=== PATIENT | female | born 1985 | race Two or more races ===

== ENCOUNTER 2022-05-26 01:31 | Emergency (ER) | payer OTHER ==
[~2022-05-26] VITALS: Ht 157.5 cm; Wt 72.5 kg
[2022-05-26 03:20] LABS: Basophils # (auto) 0.1 10 ^3/uL (0-0.2); Basophils % (auto) 0.6 % (0.0-2.0); Eosinophils # (auto) 0.3 10 ^3/uL (0-0.8); Eosinophils % (auto) 3.7 % (0.0-7.0); Hematocrit 40.7 % (36.0-46.0); Hemoglobin 14.1 g/dL (12.2-16.2); Lymphocytes # (auto) 1.7 10 ^3/uL (0.4-5.4); Mean Corpuscular Hemoglobin 31.7 pg (28.0-32.0); Mean Corpuscular Hgb Conc. 34.6 g/dL (32.0-36.0); Mean Corpuscular Volume 91.5 fL (80.0-100.0); Monocytes # (auto) 0.5 10 ^3/uL (0-1.3); Monocytes % (auto) 5.9 % (0.0-12.0); Neutrophils # (auto) 6.7 10 ^3/uL (1.6-8.6); Neutrophils % (auto) 71.8 % (37.0-80.0); Red Blood Cells 4.45 10^6/uL (4.0-5.20); Red Cell Distribution Width 12.1 % (11.8-14.3); White Blood Cell 9.3 10^3/uL (4.4-10.8)
[2022-05-26 03:46] LABS: Albumin 3.8 g/dL (3.4-5.0); BUN/Creatinine Ratio 14.7; Calcium 8.9 mg/dL (8.5-10.1); Potassium 4.2 mmol/L (3.5-5.1)
[2022-05-26 03:55] LABS: Bilirubin, Total 0.4 mg/dL (0.2-1.0); Total Protein 7.2 g/dL (6.4-8.2)
[2022-05-26] MEDS ORDERED: IOHEXOL 350 MG/ML 100ML IJ ONE (03:56)
[2022-05-26 04:06] LABS: Urine Bacteria FEW /hpf (None Seen); Urine Blood Negative /uL (Negative); Urine Mucus FEW (None Seen); Urine Specific Gravity 1.029 (1.001-1.035); Urine WBC 3 /hpf (0 - 5)
[2022-05-26] MEDS ORDERED: HYDR1TAB97 PO (05:55)
[2022-05-26] MEDS ORDERED: TAM04C PO (05:55)
[2022-05-26] MEDS ORDERED: KETOROLAC TROMETH 30 MG/ML 1ML VIAL IV ONE (06:00)
[2022-05-26] MEDS ORDERED: HYDROcodone-ACET 5/325MG TAB PO ONE (06:00)
[2022-05-26 07:51] VITALS: BP 126/79
== END 2022-05-26 07:57 | disposition home or self-care (01) ==
LOC: ER 01:31
DX: N23 Unspecified renal colic (principal); N20.9 Urinary calculus, unspecified; Z90.49 Acquired absence of other specified parts of digestive tract
CPT/HCPCS: 36415; 74177; 80053; 81001; 81025; 83690; 85025; 99285; Q9967

== ENCOUNTER 2024-09-20 09:15 | Inpatient (IN) | payer OTHER ==
[~2024-09-20] VITALS: Ht 157.5 cm; Wt 85.0 kg
[~2024-09-20 09:15] MED LIST: HYDR1TAB97 PO; TAMS-35 PO
--- NOTE | 2024-09-20 09:22 | ECG ---
[facility] Test Date: 2024-09-20 Test Time: 09:20:56 Pat Name: CRAIG HUERTA Department: ER Room: [address] [place] [address] Gender: F Co Chairman: AZUL : 1985 Requested By: ANGELA GRECO Order Number: [id number] Reading MD: Ronnie Cole Measurements Intervals [place] Rate: 88 P: 45 CT: 122 QRS: 44 QRSD: 82 T: 16 QT: 354 QTc: 429 Interpretive Statements Sinus rhythm Borderline T abnormalities, anterior leads Electronically Signed On 09-21-2024 22:15:22 PST by Ronnie Cole Please click the below link to view image of tracing.
--- NOTE | 2024-09-20 09:35 | DVH ---
CHEST RADIOGRAPH Indication: chest pain Technique: Single frontal view of the chest was obtained COMPARISON: None FINDINGS: Lines and Tubes: None Lungs: Clear Pleura: No effusion. No pneumothorax. Cardiomediastinal contours: Unremarkable Bones: Unremarkable IMPRESSION: No acute disease.
[2024-09-20 10:17] LABS: Basophils # (auto) 0 10 ^3/uL (0-0.2); Basophils % (auto) 0.7 % (0.0-2.0); Eosinophils # (auto) 0.2 10 ^3/uL (0-0.8); Eosinophils % (auto) 3.3 % (0.0-7.0); Hematocrit 45.3 % (36.0-46.0); Hemoglobin 15.5 g/dL (12.2-16.2); Lymphocytes # (auto) 1.6 10 ^3/uL (0.4-5.4); Lymphocytes % (auto) 30.1 % (10.0-50.0); Mean Corpuscular Hemoglobin 31.3 pg (28.0-32.0); Mean Corpuscular Hgb Conc. 34.2 g/dL (32.0-36.0); Mean Corpuscular Volume 91.4 fL (80.0-100.0); Monocytes # (auto) 0.4 10 ^3/uL (0-1.3); Monocytes % (auto) 7.2 % (0.0-12.0); Neutrophils # (auto) 3.2 10 ^3/uL (1.6-8.6); Neutrophils % (auto) 58.7 % (37.0-80.0); Nucleated Red Blood Cells % 0.1 %; Platelet Count (auto) 204 10^3/uL (140-450); Red Blood Cells 4.96 10^6/uL (4.0-5.20); Red Cell Distribution Width 12.7 % (11.8-14.3); White Blood Cell 5.4 10^3/uL (4.4-10.8)
--- NOTE | 2024-09-20 10:17 | ED.PDOC ---
HPI Comments 39-year-old female with no reported PMHx presents with a chief complaint of chest pain x 1 day. Patient states that her pain is localized to her sternal region, radiates down her left arm, describes as sharp, and rates the pain a 9/10. Patient mentions that the timing of the pain is consistent and not intermittent in timing. Patient mentions that the pain began at rest. No other symptoms or modifying factors present at this time. Chief Complaint: Chest Pain Time Seen by MD: 09:54 Reviewed Notes: Medications, Allergies Allergies: Coded Allergies: NO KNOWN ALLERGIES (Unverified , 05/26/22) Home Meds Active Scripts Hydrocodone-Acetaminophen (Hydrocodone/Acetaminophen 5-325 mg) 1 Tab Tab, 1 TAB PO [id number] PRN for 2 Days, #4 TAB Prov:NOEL CHOWDARY MD 05/26/22 Tamsulosin Hcl (Flomax) 0.4 Mg Cap, 0.4 MG PO DAILY for 7 Days, #7 CAP Prov:NOEL CHOWDARY MD 05/26/22 Information Source: Patient Mode of Arrival: Ambulatory Severity: Moderate Timing: Days Duration: Since onset Prehospital treatment: None Location: Substernal Radiation: Arm (L) Quality: Sharp Onset: At Rest Cardiac Risk Factors: None PE Risk Factors: None History of: None Past Medical History PAST MEDICAL HISTORY: UTI'S 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, 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 Family History Family History: Reviewed,noncontributory to illness Social History Smoker: Non-Smoker Alcohol: Denies ETOH Use Drugs: Denies Drug Use Lives In: Home Constitutional: denies: chills, diaphoresis, fatigue, fever, malaise, sweats, weakness, others EENTM: denies: blurred vision, double vision, ear bleeding, ear discharge, ear drainage, ear pain, ear ringing, eye pain, eye redness, hearing loss, mouth pain, mouth swelling, nasal discharge, nose bleeding, nose congestion, nose pain, photophobia, tearing, throat pain, throat swelling, voice changes, others Respiratory: denies: cough, hemoptysis, orthopnea, SOB at rest, shortness of breath, SOB with excertion, stridor, wheezing, others Cardiovascular: reports: chest pain; denies: dizzy spells, diaphoresis, Dyspnea on exertion, edema, irregular heart beat, left arm pain, lightheadedness, palpitations, PND, syncope, others Gastrointestinal: denies: abdomen distended, abdominal pain, blood streaked bowels, constipated, diarrhea, dysphagia, difficulty swallowing, hematemesis, melena, nausea, poor appetite, poor fluid intake, rectal bleeding, rectal pain, vomiting, others Genitourinary: denies: abnormal vagina bleeding, burning, dyspareunia, dysuria, flank pain, frequency, hematuria, incontinence, pain, , vagina discharge, urgency, others Neurological: denies: dizziness, fainting, headache, left sided numbness, left sided weakness, numbness, paresthesia, pre-existing deficit, right sided numbness, right sided weakness, seizure, speech problems, tingling, tremors, weakness, others Musculoskeletal: denies: back pain, gout, joint pain, joint swelling, muscle pain, muscle stiffness, neck pain, others Integumetry: denies: bruises, change in color, change in hair/nails, dryness, laceration, lesions, lumps, rash, wounds, others Allergic/Immunocompromised: denies: Difficulty Healing, Frequent Infections, Hives, Itching, others Hematologic/Lymphatic: denies: anemia, blood clots, easy bleeding, easy bruising, swollen glands, others Endocrine: denies: excessive hunger, excessive sweating, excessive thirst, excessive urination, flushing, intolerance to cold, intolerance to heat, unexplained weight gain, unexplained weight loss, others Psychiatric: denies: anxiety, bipolar disorder, depression, hopeless, panic disorder, schizophrenia, sleepless, suicidal, others All Other Systems: Reviewed and Negative Physical Exam General Appearance: Moderate Distress, Normal HEENT: Normal ENT Inspection, Pharynx Normal, TMs Normal Neck: Full Range of Motion, Non-Tender, Normal, Normal Inspection Respiratory: Chest Non-Tender, Lungs Clear, No Accessory Muscle Use, No Respiratory Distress, Normal Breath Sounds Cardiovascular: No Edema, No JVD, No Murmur, No Gallop, Normal Peripheral Pulses, Regular Rate/Rhythm Breast Exam: Deferred Gastrointestinal: No Organomegaly, Non Tender, No Pulsatile Mass, Normal Bowel Sounds, Soft Genitalia: Deferred Pelvic: Deferred Rectal: Deferred Extremities: No calf tenderness, Normal capillary refill, Normal inspection, Normal range of motion, Non-tender, No pedal edema Musculoskeletal : Apperance: Normal Neurologic: Alert, hr leader II-XII nml as Tested, No Motor Deficits, Normal Affect, Normal Mood, No Sensory Deficits Cerebellar Function: Normal Reflexes: Normal Skin: Dry, Normal Color, Warm Peripheral Pulses: 3+ Radial (R), 3+ Radial (L) Lymphatic: No Adenopathy Was a procedure done? Was a procedure done?: No CP Differential Dx Differential Diagnosis: A-fib, A-Flutter, Angina, Anxiety / Panic Attack, Atrial Dysrhythmia, Electrolyte Disorder X-Ray, Labs, Meds, VS Vital Signs Date Time Temp Pulse Resp B/P (MAP) Pulse Ox O2 Delivery O2 Flow Rate FiO2 09/20/24 09:24 98.0 89 20 141/85 (103) 96 09/20/24 09:20 88 Lab Test 09/20/24 10:25 09/20/24 09:34 Range/Units Troponin I High Sensitivity < 3 L < 3 L </=34 ng/L White Blood Count 5.4 4.4-10.8 10^3/uL Red Blood Count 4.96 4.0-5.20 10^6/uL Hemoglobin 15.5 12.2-16.2 g/dL Hematocrit 45.3 36.0-46.0 % Mean Corpuscular Volume 91.4 80.0-100.0 fL Mean Corpuscular Hemoglobin 31.3 28.0-32.0 pg Mean Corpuscular Hemoglobin Concent 34.2 32.0-36.0 g/dL Red Cell Distribution Width 12.7 11.8-14.3 % Platelet Count 204 140-450 10^3/uL Mean Platelet Volume 8.1 6.9-10.8 fL Neutrophils (%) (Auto) 58.7 37.0-80.0 % Lymphocytes (%) (Auto) 30.1 10.0-50.0 % Monocytes (%) (Auto) 7.2 0.0-12.0 % Eosinophils (%) (Auto) 3.3 0.0-7.0 % Basophils (%) (Auto) 0.7 0.0-2.0 % Neutrophils # (Auto) 3.2 1.6-8.6 10 ^3/uL Lymphocytes # (Auto) 1.6 0.4-5.4 10 ^3/uL Monocytes # (Auto) 0.4 0-1.3 10 ^3/uL Eosinophils # (Auto) 0.2 0-0.8 10 ^3/uL Basophils # (Auto) 0 0-0.2 10 ^3/uL Nucleated Red Blood Cells 0.1 % D-Dimer, Quantitative 0.20 0.0-0.49 mg/L FEU Sodium Level 142 136-145 mmol/L Potassium Level 4.3 3.5-5.1 mmol/L Chloride Level 107 98-107 mmol/L Carbon Dioxide Level 26 20-31 mmol/L Anion Gap 9 5-15 Blood Urea Nitrogen 12 9-23 mg/dL Creatinine 0.93 0.550-1.02 mg/dL Glomerular Filtration Rate Calc 81 >90 mL/min BUN/Creatinine Ratio 12.9 10.0-20.0 Serum Glucose 123 H 74-106 mg/dL Calcium Level 10.4 8.7-10.4 mg/dL Patient alert. Complaining of chest pain. Continues to have chest pain. Vitals stable. D-dimer within normal limits. EKG reviewed does not show any acute changes. Possible mitral valve disease. Cardiac marker within normal limits. Echocardiogram. Explained to the patient. Continue cardiac monitoring. Time of 1ST Reevaluation: 10:24 Reevaluation 1ST: Unchanged Patient Education/Counseling: Diagnosis, Treatment, Prognosis Family Education/Counseling: Diagnosis, Treatment, Prognosis Departure 1 Departure Time of Disposition: 11:57 Impression: Primary Impression: Chest pain of unknown etiology Additional Impression: Mitral valve disease Disposition: ADMITTED INPATIENT Admit to: Med Surg Condition: Guarded Critical Care Note Critical Care Time?: No Stability Stability form required: No Heart Score Heart Score: Heart Score Response (Comments) Value History Slightly Suspicious 0 EKG Normal 0 Age <45 0 Risk Factors No known risk factors 0 Troponin Normal limit 0 Total 0 I personally scribed for ANGELA GRECO MD ([email or web address]) on 09/20/24 at 10:17. Electronically submitted by Carmelo Keller ([email or web address]). ANGELA GRECO MD Sep 20, 2024 10:17
[2024-09-20 10:24] LABS: Potassium 4.3 mmol/L (3.5-5.1); Sodium 142 mmol/L (136-145)
[2024-09-20 10:25] LABS: Anion Gap 9 (5-15); Carbon Dioxide 26 mmol/L (20-31)
[2024-09-20 10:31] LABS: BUN/Creatinine Ratio 12.9 (10.0-20.0); Blood Urea Nitrogen 12 mg/dL (9-23)
[2024-09-20 10:39] LABS: Calcium 10.4 mg/dL (8.7-10.4); Chloride 107 mmol/L (98-107); Glucose 123 mg/dL (74-106)
[2024-09-20] MEDS ORDERED: DOCUSATE SOD 100 MG CAP PO PRN (14:00)
[2024-09-20] MEDS ORDERED: NITROGLYCERIN 0.4 MG SL TAB SL PRN (14:00)
[2024-09-20] MEDS ORDERED: HYDROcodone-ACET 5/325MG TAB PO PRN (14:00)
[2024-09-20] MEDS ORDERED: MORPHINE SULFATE INJ 2 MG/ml SYRG IV PRN (14:00)
[2024-09-20] MEDS: SODIUM CHLOR 0.9% PF (SALINE LOCK) 10ML VIAL/SYR IV SCH (14:00)
--- NOTE | 2024-09-20 14:17 | DVHHP2 ---
History of Present Illness Reason for Visit: Chest pain History of Present Illness Thalia Nelson is a 39-year-old female with no significant past medical history who comes in with complaints of chest pain. Patient states that the chest pain began yesterday while getting ready for work. She thought that maybe it was indigestion. The pain continued all day yesterday about every 3-5 minutes as a stabbing, sharp pain in the left side of her chest that radiated down her left arm. This morning when she woke up the pain continued, and she she noticed her left arm was now feeling numb and tingling so she came to the ER. Past 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, (x 2), Other, Tonsillectomy Smoke: No ALCOHOL: none Drugs: None Lives: with Family Review of Systems Constitutional: No: Fever, Chills, Sweats, Weakness, Malaise, Other Eyes: No: Pain, Vision change, Conjunctivae inflammation, Eyelid inflammation, Other, Redness ENT: No: Ear pain, Ear discharge, Nose pain, Nose discharge, Nose congestion, Mouth pain, Mouth swelling, Throat pain, Throat swelling, Other Respiratory: No: Cough, Dry, Shortness of breath, SOB with excertion, Wheezing, Hemoptysis, Pleuritic Pain, Sputum, Wheezing, Other Cardiovascular: Chest Pain; No: Palpitations, Orthopnea, Paroxysmal Noc. Dyspnea, Edema, Lt Headedness, Other Gastrointestinal: No: Nausea, Vomiting, Abdominal Pain, Diarrhea, Constipation, Melena, Hematochezia, Other Genitourinary: No Dysuria, No Frequency, No Incontinence, No Hematuria, No Retention, No Other Musculoskeletal: No: other, neck pain, shoulder pain, arm pain, back pain, hand pain, leg pain, foot pain Skin: No: Rash, Lesions, Jaundice, Bruising, Other Neurological: No: Weakness, Numbness, Incoordination, Change in speech, Confusion, Seizures, Other Allergies: Coded Allergies: NO KNOWN ALLERGIES (Unverified , 05/26/22) Exam Vital Signs Vital Signs Date Time Temp Pulse Resp B/P (MAP) Pulse Ox O2 Delivery O2 Flow Rate FiO2 09/20/24 09:24 98.0 89 20 141/85 (103) 96 General Appearance: Alert, Oriented X3, Cooperative, mild distress HEENT: Atraumatic, PERRLA Respiratory: Clear to auscultation, Normal air movement Cardiovascular: Regular rate, Normal S1, Normal S2, No murmurs, Other (C/O chest pain) Abdominal: Normal bowel sounds, Soft, No tenderness, No hepatospenomegaly Extremities: No clubbing, No cyanosis, No edema, Normal pulses Skin: No rashes, No breakdown, No significant lesion Neuro: Normal gait, Normal speech, Strength at 5/5 X4 ext Psych/Mental Status: Mental status NL, Mood NL Labs/Xrays Labs Test 09/20/24 12:24 09/20/24 09:34 Range/Units Troponin I High Sensitivity < 3 L </=34 ng/L White Blood Count 5.4 4.4-10.8 10^3/uL Red Blood Count 4.96 4.0-5.20 10^6/uL Hemoglobin 15.5 12.2-16.2 g/dL Hematocrit 45.3 36.0-46.0 % Mean Corpuscular Volume 91.4 80.0-100.0 fL Mean Corpuscular Hemoglobin 31.3 28.0-32.0 pg Mean Corpuscular Hemoglobin Concent 34.2 32.0-36.0 g/dL Red Cell Distribution Width 12.7 11.8-14.3 % Platelet Count 204 140-450 10^3/uL Mean Platelet Volume 8.1 6.9-10.8 fL Neutrophils (%) (Auto) 58.7 37.0-80.0 % Lymphocytes (%) (Auto) 30.1 10.0-50.0 % Monocytes (%) (Auto) 7.2 0.0-12.0 % Eosinophils (%) (Auto) 3.3 0.0-7.0 % Basophils (%) (Auto) 0.7 0.0-2.0 % Neutrophils # (Auto) 3.2 1.6-8.6 10 ^3/uL Lymphocytes # (Auto) 1.6 0.4-5.4 10 ^3/uL Monocytes # (Auto) 0.4 0-1.3 10 ^3/uL Eosinophils # (Auto) 0.2 0-0.8 10 ^3/uL Basophils # (Auto) 0 0-0.2 10 ^3/uL Nucleated Red Blood Cells 0.1 % D-Dimer, Quantitative 0.20 0.0-0.49 mg/L FEU Sodium Level 142 136-145 mmol/L Potassium Level 4.3 3.5-5.1 mmol/L Chloride Level 107 98-107 mmol/L Carbon Dioxide Level 26 20-31 mmol/L Anion Gap 9 5-15 Blood Urea Nitrogen 12 9-23 mg/dL Creatinine 0.93 0.550-1.02 mg/dL Glomerular Filtration Rate Calc 81 >90 mL/min BUN/Creatinine Ratio 12.9 10.0-20.0 Serum Glucose 123 H 74-106 mg/dL Calcium Level 10.4 8.7-10.4 mg/dL CHEST RADIOGRAPH FINDINGS: Lines and Tubes: None Lungs: Clear Pleura: No effusion. No pneumothorax. Cardiomediastinal contours: Unremarkable Bones: Unremarkable IMPRESSION: No acute disease. 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 Procedure Category Date Status Time Admit ADMIT 09/20/24 Verified 14:00 Code Status CODE 09/20/24 Verified 14:00 2 Gm Sodium Diet DIET 09/20/24 Verified Dinner Sodium Chloride Lock PHA 09/20/24 Verified (Saline Lock Ns) 14:00 Hydrocodone-Acet PHA 09/20/24 Verified 5/325mg Tab ([place] 14:00 Ondansetron Hcl PHA 09/20/24 Verified (Zofran) 14:00 Docusate Sodium PHA 09/20/24 Verified Capsule (Colace 14:00 Complete Blood Count LAB 09/21/24 Verified 04:00 Comprehensive LAB 09/21/24 Verified Metabolic Panel 04:00 Condition: Serious [facility] 09/20/24 Verified 14:00 Acetaminophen Tablet PHA 09/20/24 Verified (Tylenol Tablet) 14:00 Nitroglycerin PHA 09/20/24 Verified Sublingual (Ntrostat 14:00 Morphine Sulfate PHA 09/20/24 Verified Injection 14:00 Stat Ekg For Chest [facility] 09/20/24 Verified Pain 14:00 Notify Md Of Changes [facility] 09/20/24 Verified From Base 14:00 Policy Loan Calculator For [facility] 09/20/24 Verified 24 Hours 14:00 Emergency Dysrhythmia [facility] 09/20/24 Verified Protocol 14:00 Rhythm Strips Once [facility] 09/20/24 Verified Every Shift 14:00 Oxygen By Nasal RT 09/20/24 Verified Cannula 14:00 * Cardiology Consult CONS 09/20/24 Verified 14:00 Date of Service: Sep 20, 2024 Billing Provider: OXANA HOUSTON Common Visit Codes: [id number] INP/OBS CARE (MOD) OXANA HOUSTON Sep 20, 2024 14:17
[2024-09-20 15:05] LABS: Cholesterol 194 mg/dL (< 200)
[2024-09-20 15:55] LABS: HDL Cholesterol 60 mg/dL (40-59); LDL Cholesterol 120 mg/dL (< 100); Triglycerides 116 mg/dL (< 150)
--- NOTE | 2024-09-20 16:58 | DVHINCON2 ---
Date Seen: Sep 20, 2024 Referring Physician MEGHAN Gonzalez Reason for Consultation Chest pain History of Present Illness This is a 39-year-old female patient who presents to the emergency room with chief complaint of chest pain. She reports that the chest pain began approximately 5:00 a.m. yesterday upon awakening. She describes it as unprovoked, intermittent, stabbing in nature, substernal with radiation down her left arm. She denies any associated symptoms. She denies any aggravating or alleviating factors. Serial troponin levels have been negative. Initial twelve lead electrocardiogram reveals normal sinus rhythm without any significant ST segment changes. Significant past medical history includes gestational diabetes and obesity. Past Medical History Past medical history reviewed. No other significant than mentioned above. Past Surgical History Cholecystectomy Family History Family history reviewed. Social History Denies the use of tobacco, alcohol or illicit drugs. Allergies: Coded Allergies: NO KNOWN ALLERGIES (Unverified , 05/26/22) Home Meds Discontinued Scripts Hydrocodone-Acetaminophen (Hydrocodone/Acetaminophen 5-325 mg) 1 Tab Tab, 1 TAB PO [id number] PRN for 2 Days, #4 TAB Prov:NOEL CHOWDARY MD 05/26/22 Tamsulosin Hcl (Flomax) 0.4 Mg Cap, 0.4 MG PO DAILY for 7 Days, #7 CAP Prov:NOEL CHOWDARY MD 05/26/22 Home Meds Denies taking any prescribed medications Current Medications Current Medications Medications (Trade) Dose Ordered Sig/Jeancarlos Route PRN Reason Start Time Stop Time Status Last Admin Sodium Chloride (Saline Lock Ns) 10 ml Q8HR IV 09/20/24 14:00 Acetaminophen/ Hydrocodone Bitart ([place] 5/325MG Tab) 1 tab Q4HP PRN PO MODERATE PAIN (4-6 PAIN SCALE) 09/20/24 14:00 Ondansetron HCl (Zofran) 4 mg Q4HP PRN IV NAUSEA / VOMITING 09/20/24 14:00 Docusate Sodium (Colace Capsule) 100 mg BIDPRN PRN PO FOR CONSTIPATION 09/20/24 14:00 Acetaminophen (Tylenol Tablet) 650 mg Q6HP PRN PO PAIN SCALE 1-3 OR TEMP>100.4 09/20/24 14:00 Nitroglycerin (Ntrostat Sublingual) 0.4 mg Q5MINP PRN SL FOR CHEST PAIN 09/20/24 14:00 Morphine Sulfate 2 mg Q30M PRN IV FOR CHEST PAIN 09/20/24 14:00 Review of Systems Constitutional: No symptom reported Ears, Nose, & Throat: No symptom reported Eyes: No symptom reported Neurological: No symptoms reported Pulmonary/Respiratory: No symptoms reported Cardiovascular: Chest pain Gastrointestinal: No symptom reported Genitourinary: No symptom reported Musculoskeletal: No symptom reported Skin: No symptom reported Psychiatric: No symptom reported Endocrine: No symptom reported Hematologic/Lymphatic: No symptom reported Vital Signs Vital Signs Date Time Temp Pulse Resp B/P (MAP) Pulse Ox O2 Delivery O2 Flow Rate FiO2 09/20/24 15:53 98.6 86 18 145/89 (107) 97 98.6 Physical Exam General Appearance: Cooperative. Well-developed. Well-nourished. No acute distress. Pulmonary/Respiratory: Clear, bilateral breaths sounds. Cardiovascular/Chest: Regular rate and rhythm. Peripheral Pulses: 2+ Radial (R). 2+ Radial (L). 2+ Pedal (R). 2+ Pedal (L) Abdominal Exam: Normal bowel sounds. Ankle Exam: Negative ankle edema Lower extremities: Negative lower extremity edema Neuro/Mental Status: A/OX4, coherent. Thoughts/Psych: Normal thought pattern. Appropriate mood and affect. Good judgment and insight. Appearance: No acute distress. Skin Exam: Normal inspection. Normal color. Warm and dry. Labs/Diagnostic Data Labs Test 09/20/24 12:24 09/20/24 09:34 Range/Units Troponin I High Sensitivity < 3 L </=34 ng/L White Blood Count 5.4 4.4-10.8 10^3/uL Red Blood Count 4.96 4.0-5.20 10^6/uL Hemoglobin 15.5 12.2-16.2 g/dL Hematocrit 45.3 36.0-46.0 % Mean Corpuscular Volume 91.4 80.0-100.0 fL Mean Corpuscular Hemoglobin 31.3 28.0-32.0 pg Mean Corpuscular Hemoglobin Concent 34.2 32.0-36.0 g/dL Red Cell Distribution Width 12.7 11.8-14.3 % Platelet Count 204 140-450 10^3/uL Mean Platelet Volume 8.1 6.9-10.8 fL Neutrophils (%) (Auto) 58.7 37.0-80.0 % Lymphocytes (%) (Auto) 30.1 10.0-50.0 % Monocytes (%) (Auto) 7.2 0.0-12.0 % Eosinophils (%) (Auto) 3.3 0.0-7.0 % Basophils (%) (Auto) 0.7 0.0-2.0 % Neutrophils # (Auto) 3.2 1.6-8.6 10 ^3/uL Lymphocytes # (Auto) 1.6 0.4-5.4 10 ^3/uL Monocytes # (Auto) 0.4 0-1.3 10 ^3/uL Eosinophils # (Auto) 0.2 0-0.8 10 ^3/uL Basophils # (Auto) 0 0-0.2 10 ^3/uL Nucleated Red Blood Cells 0.1 % D-Dimer, Quantitative 0.20 0.0-0.49 mg/L FEU Sodium Level 142 136-145 mmol/L Potassium Level 4.3 3.5-5.1 mmol/L Chloride Level 107 98-107 mmol/L Carbon Dioxide Level 26 20-31 mmol/L Anion Gap 9 5-15 Blood Urea Nitrogen 12 9-23 mg/dL Creatinine 0.93 0.550-1.02 mg/dL Glomerular Filtration Rate Calc 81 >90 mL/min BUN/Creatinine Ratio 12.9 10.0-20.0 Serum Glucose 123 H 74-106 mg/dL Hemoglobin A1c 5.0 <5.7 % A1C Calcium Level 10.4 8.7-10.4 mg/dL Magnesium Level 1.9 1.6-2.6 mg/dL Assessment Chest pain, likely noncardiac Rule out structural heart disease Hyperlipidemia, newly diagnosed Obesity Plan/Recommendation We will continue with following plan/recommendations (Dr. Salter): Case reviewed and discussed with . HEART score: 1 point (low score). Given the patient's clinical presentation, negative troponin level, and unremarkable twelve lead electrocardiogram, doubt ACS. We will proceed with obtaining a transthoracic echocardiogram to evaluate cardiac function. In the setting of an unremarkable echocardiogram, there is no further inpatient cardiac workup indicated at this time. Consider outpatient cardiac workup if deemed necessary. Thank you for allowing us to care for this patient. Please call with any questions or concerns. Critical care time spent: 44 minutes This medical document was created using an electronic medical record system with voice recognition software and computerized dictation system. Although this document has been carefully reviewed, there might still be some phonetic and typographical errors. Occasional wrong-word or ``sound-alike substitutions may have occurred due to the inherent limitations of voice recognition software. These areas are purely typographical due to imperfections of the software programs and do not reflect any compromise in the patient's medical care. Please read the chart carefully and recognize, using context, where these substitutions have occurred. Plan discussed with: Patient NYHA Physical activity limitations: NA Date of Service: Sep 20, 2024 Billing Provider: ANURADHA GAGE Cardiology Common Codes: [id number] INP/OBS CARE (High) Cardiology Consultation Codes: [id number] CONSULT <45MIN ANURADHA GAGE Sep 20, 2024 16:58
[2024-09-21 01:25] VITALS: BP 141/88; PULSE 76; RESP 19; TEMP 97.6; O2SAT 96
[2024-09-21] MEDS: ACETAMINOPHEN 325 MG TAB PO PRN (01:28)
[2024-09-21] MEDS: ONDANSETRON HCL 4 MG/2 ML VIAL IV PRN (01:28)
[2024-09-21 05:00] VITALS: BP 133/73; PULSE 82; RESP 18; TEMP 97.4; O2SAT 97
[2024-09-21 05:50] LABS: Basophils # (auto) 0 10 ^3/uL (0-0.2); Basophils % (auto) 0.5 % (0.0-2.0); Eosinophils # (auto) 0.1 10 ^3/uL (0-0.8); Hematocrit 42.3 % (36.0-46.0); Hemoglobin 14.5 g/dL (12.2-16.2); Lymphocytes # (auto) 1.6 10 ^3/uL (0.4-5.4); Lymphocytes % (auto) 22.2 % (10.0-50.0); Mean Corpuscular Hemoglobin 31.3 pg (28.0-32.0); Mean Corpuscular Hgb Conc. 34.2 g/dL (32.0-36.0); Mean Corpuscular Volume 91.6 fL (80.0-100.0); Monocytes # (auto) 0.6 10 ^3/uL (0-1.3); Monocytes % (auto) 7.8 % (0.0-12.0); Neutrophils # (auto) 4.9 10 ^3/uL (1.6-8.6); Neutrophils % (auto) 68.5 % (37.0-80.0); Nucleated Red Blood Cells % 0.4 %; Platelet Count (auto) 191 10^3/uL (140-450); Red Blood Cells 4.62 10^6/uL (4.0-5.20); Red Cell Distribution Width 12.5 % (11.8-14.3); White Blood Cell 7.2 10^3/uL (4.4-10.8)
[2024-09-21 06:02] LABS: Alanine Aminotransferase 28 U/L (7-40); Alkaline Phosphatase 59 U/L (46-116); Anion Gap 6 (5-15); Blood Urea Nitrogen 12 mg/dL (9-23); Calcium 10.2 mg/dL (8.7-10.4); Carbon Dioxide 26 mmol/L (20-31); Potassium 4.3 mmol/L (3.5-5.1); Sodium 140 mmol/L (136-145)
[2024-09-21 06:03] LABS: Albumin 4.7 g/dL (3.2-4.8)
[2024-09-21 06:04] LABS: Aspartate Aminotransferase 18 U/L (13-40)
[2024-09-21 06:19] LABS: Chloride 108 mmol/L (98-107); Glucose 108 mg/dL (74-106)
[2024-09-21 08:00] VITALS: PULSE 77
[2024-09-21 09:00] VITALS: BP 115/73; PULSE 81; RESP 17; TEMP 97.4; O2SAT 96
--- NOTE | 2024-09-21 11:42 | DVHSR ---
APPROVED REPORT EXAM: Two-dimensional and M-mode echocardiogram with Doppler and color Doppler. Blood Pressure: 141/85 mmHg INDICATION Chest Pain LV Function RISK FACTORS Obesity: Height: 5' 2", Weight: 185 DIMENSIONS LVDd4.6 (3.8-5.7cm)LA (2D)3.7 (1.9-4.0cm)Aortic Root3.0 (2.0-3.7cm) LVDs2.8 (2.5-4.0cm)LA (MM) (1.9-4.0cm)Aortic Cusp Exc1.8 (1.5-2.0cm) EF (%) 65.0 (55-70%)Rt. Atrium3.6 (1.9-4.0cm)Asc. Aorta cm IVSd1.0 (0.7-1.1cm)RV (D) (1.8-2.4cm) PWd0.7 (0.7-1.1cm) Mitral Valve MitralMitral Stenosis E wave0.90m/sMV Mean GR.mmHg A wave0.70m/sMV Peak GR.mmHg E/A ratio1.32D MVAcm2 Aortic Valve Aortic ValveAortic Stenosis V11.10m/Chas Mean GR.4mmHg V21.40m/Chas Peak GR.9mmHg LVOT Diameter2.1 (1.8-2.4cm)Doppler AVA2.72cm2 Pulmonic Valve V20.80m/s Tricuspid Valve TR Velocity2.60m/s [id number] Conclusion lvef 60% by visual estimate normal rv function left atrium enlarged normal pericardium no severe valve abnormalites noted
[2024-09-21 13:00] VITALS: BP 98/54; PULSE 74; RESP 17; TEMP 98; O2SAT 96
--- NOTE | 2024-09-21 13:41 | DVHPN2 ---
Reviewed: Care Plan, H&P, Labs, Medications, Previous Orders, Radiology Changes from previous H/P or p: No Changes Eyes: No Pain, No Vision change, No Conjunctivae inflammation, No Eyelid inflammation, No Other, No Redness ENT: No Ear pain, No Ear discharge, No Nose pain, No Nose discharge, No Nose congestion, No Mouth pain, No Mouth swelling, No Throat pain, No Throat swelling, No Other Cardiovascular: Chest Pain; No Palpitations, No Orthopnea, No Paroxysmal Noc. Dyspnea, No Edema, No Lt Headedness, No Other Respiratory: No Cough, No Dry, No Shortness of breath, No SOB with excertion, No Wheezing, No Hemoptysis, No Pleuritic Pain, No Sputum, No Other Gastrointestinal: No Nausea, No Vomiting, No Abdominal Pain, No Diarrhea, No Constipation, No Melena, No Hematochezia, No Other Genitourinary: No Dysuria, No Frequency, No Incontinence, No Hematuria, No Retention, No Other Musculoskeletal: No other, No neck pain, No shoulder pain, No arm pain, No back pain, No hand pain, No leg pain, No foot pain Skin: No Rash, No Lesions, No Jaundice, No Bruising, No Other Objective Vitals Vital Signs Date Time Temp Pulse Resp B/P (MAP) Pulse Ox O2 Delivery O2 Flow Rate FiO2 09/21/24 13:00 98.0 74 17 98/54 (69) 96 98.0 09/21/24 08:00 Room Air* 0 21 Intake/Output Intake and Output 09/21/24 07:00 Intake Total 525 ml Balance 525 ml Intake Oral 525 ml # Voids 2 Medications Current Medications Medications Dose Ordered Sig/Jeancarlos Route Start Time Stop Time Status Last Admin Dose Admin Sodium Chloride 10 ml Q8HR IV 09/20/24 14:00 09/21/24 06:00 10 ML Acetaminophen/ Hydrocodone Bitart 1 tab Q4HP PRN PO 09/20/24 14:00 Ondansetron HCl 4 mg Q4HP PRN IV 09/20/24 14:00 09/21/24 01:28 4 MG Docusate Sodium 100 mg BIDPRN PRN PO 09/20/24 14:00 Acetaminophen 650 mg Q6HP PRN PO 09/20/24 14:00 09/21/24 10:20 650 MG Nitroglycerin 0.4 mg Q5MINP PRN SL 09/20/24 14:00 Morphine Sulfate 2 mg Q30M PRN IV 09/20/24 14:00 Laboratory Results Laboratory Tests 09/21/24 05:24 Chemistry Test 09/21/24 05:24 Albumin 4.7 g/dL (3.2-4.8) Calcium Level 10.2 mg/dL (8.7-10.4) Total Protein 7.0 g/dL (5.7-8.2) LFT Test 09/21/24 05:24 Alanine Aminotransferase (ALT) 28 U/L (7-40) Alkaline Phosphatase 59 U/L (46-116) Aspartate Amino Transferase (AST) 18 U/L (13-40) Total Bilirubin 1.0 mg/dL (0.2-1.0) Labs and/or images reviewed: Labs reviewed by me, Image(s) reviewed by me Assessment/Plan Assessment/Plan Chest pain, likely noncardiac negative troponins EKG normal echocardiogram pending, cardiology consult by Dr. Salter appreciated Rule out structural heart disease Hyperlipidemia, newly diagnosed Obesity Echocardiogram report pending Patient is thinking of leaving AMA Plan discussed with: Patient My Orders Orders - ANURADHA SANTA MD Procedure Category Date Status Time Drug Screen LAB 09/21/24 Transmitted 13:37 Date of Service: Sep 21, 2024 Billing Provider: ANURADHA SANTA MD Common Visit Codes: [id number] INP/OBS CARE(HIGH) ANURADHA SANTA MD Sep 21, 2024 13:41
--- NOTE | 2024-09-22 08:26 | DVHDS2 ---
Discharge Summary Date of Admission Sep 20, 2024 at 14:00 Date of Discharge: Sep 22, 2024 Admitting Diagnosis Chest pain Wounds: None Labs/Diagnostic Data: Laboratory Results Test 09/21/24 05:24 09/20/24 12:24 09/20/24 09:34 White Blood Count 7.2 10^3/uL (4.4-10.8) Red Blood Count 4.62 10^6/uL (4.0-5.20) Hemoglobin 14.5 g/dL (12.2-16.2) Hematocrit 42.3 % (36.0-46.0) Mean Corpuscular Volume 91.6 fL (80.0-100.0) Mean Corpuscular Hemoglobin 31.3 pg (28.0-32.0) Mean Corpuscular Hemoglobin Concent 34.2 g/dL (32.0-36.0) Red Cell Distribution Width 12.5 % (11.8-14.3) Platelet Count 191 10^3/uL (140-450) Mean Platelet Volume 7.9 fL (6.9-10.8) Neutrophils (%) (Auto) 68.5 % (37.0-80.0) Lymphocytes (%) (Auto) 22.2 % (10.0-50.0) Monocytes (%) (Auto) 7.8 % (0.0-12.0) Eosinophils (%) (Auto) 1.0 % (0.0-7.0) Basophils (%) (Auto) 0.5 % (0.0-2.0) Neutrophils # (Auto) 4.9 10 ^3/uL (1.6-8.6) Lymphocytes # (Auto) 1.6 10 ^3/uL (0.4-5.4) Monocytes # (Auto) 0.6 10 ^3/uL (0-1.3) Eosinophils # (Auto) 0.1 10 ^3/uL (0-0.8) Basophils # (Auto) 0 10 ^3/uL (0-0.2) Nucleated Red Blood Cells 0.4 % Sodium Level 140 mmol/L (136-145) Potassium Level 4.3 mmol/L (3.5-5.1) Chloride Level 108 mmol/L (98-107) Carbon Dioxide Level 26 mmol/L (20-31) Anion Gap 6 (5-15) Blood Urea Nitrogen 12 mg/dL (9-23) Creatinine 0.80 mg/dL (0.550-1.02) Glomerular Filtration Rate Calc 97 mL/min (>90) BUN/Creatinine Ratio 15.0 (10.0-20.0) Serum Glucose 108 mg/dL (74-106) Calcium Level 10.2 mg/dL (8.7-10.4) Total Bilirubin 1.0 mg/dL (0.2-1.0) Aspartate Amino Transferase (AST) 18 U/L (13-40) Alanine Aminotransferase (ALT) 28 U/L (7-40) Alkaline Phosphatase 59 U/L (46-116) Total Protein 7.0 g/dL (5.7-8.2) Albumin 4.7 g/dL (3.2-4.8) Troponin I High Sensitivity < 3 ng/L (</=34) D-Dimer, Quantitative 0.20 mg/L FEU (0.0-0.49) Hemoglobin A1c 5.0 % A1C (<5.7) Magnesium Level 1.9 mg/dL (1.6-2.6) Triglycerides Level 116 mg/dL (< 150) Cholesterol Level 194 mg/dL (< 200) LDL Cholesterol 120 mg/dL (< 100) HDL Cholesterol 60 mg/dL (40-59) Thyroid Stimulating Hormone (TSH) 0.59 uIU/mL (0.55-4.78) Other Laboratory Tests 09/21/24 05:24 Brief Hx & Hospital Course: 39-year-old female with a history of hyperlipidemia came in for chest pain troponin negative x3 EKG normal echo 65 percent ejection fraction cardiology consult by Dr. Salter. While awaiting further stabilization patient decided to leave AMA and left AMA. Consequences and complications explained to the patient. Consults/Reason for consult Cardiology Dr. Salter Operations or Procedures Echocardiogram Condition at Discharge: Fair Final Diagnosis/Problems List Chest pain, likely noncardiac negative troponins EKG normal echocardiogram pending, cardiology consult by Dr. Salter appreciated Rule out structural heart disease Hyperlipidemia, newly diagnosed Obesity Echocardiogram report pending Discharge Disposition: AMA Discharge Instruct/Medications Diet comment: Not applicable Patient left AMA Activity comment: Not applicable Patient left AMA Follow Up/Referral: Not applicable Patient left AMA Medications: Not applicable Patient left AMA 35 (Time taken for discharge summary 35 minutes) Discharge Statement: "Patient was advised to return to the ER or call 911 if any headaches, dizziness, shortness of breath, chest pain, abdominal pain, bleeding, fevers, or worsening of medical condition. Patient was counseled about treatment plan, medications, possible side effects, patientverbalized understanding. All questions were answered to the best of my ability. This discharge took greater then 30 minutes in planning, reviewing documentation, counseling the patient, and discussing with other team members." ASSESSMENT ASSESSMENT Hospital Course Left AMA Assessment Date of Service: Sep 22, 2024 Billing Provider: ANURADHA SANTA MD Common Visit Codes: [id number] DISCH DAY >30min ANURADHA SANTA MD Sep 22, 2024 08:26
== END 2024-09-21 14:00 | disposition left against medical advice (07) | DRG 313 ==
LOC: ER 09:15 → OVERFLOW 14:00 → TELE-EAST 23:55
PROVIDERS: ADMIT Family Medicine; ATTEND Family Medicine
DX: R07.89 Other chest pain (principal); E78.5 Hyperlipidemia, unspecified; E66.9 Obesity, unspecified; Z53.29 Procedure and treatment not carried out because of patient's decision for other reasons; Z86.32 Personal history of gestational diabetes; Z68.34 Body mass index [BMI] 34.0-34.9, adult; Z90.49 Acquired absence of other specified parts of digestive tract; Z98.891 History of uterine scar from previous surgery
CPT/HCPCS: 36415; 71045; 80048; 80053; 80061; 83036; 83735; 84443; 84484; 85025; 85379; 93005; 93306; G0378; J2405